=== PATIENT | male | born 1995 | race Caucasian/White ===

== ENCOUNTER 2016-07-05 16:39 | Emergency (ER) | payer OTHER ==
--- NOTE | 2016-07-05 17:53 | ED ORDER SUMMARY ---
..... Patient: RICHELLE BRUCE OrderSheet [facility] VisitID: [id number] [place] [address] 20y, M Registration Date/Time: 07/05/2016 ORDER SHEET Weight: 83.9 kg Allergies: [place] GENERAL ORDERS: Knee 4V Right Urgent (16:58 07/05/2016 EKoroleva P.A.-C) (Ack 17:18 LTapper) (17:27 LTapper) Tibia/Fibula Right Urgent (16:58 07/05/2016 EKoroleva P.A.-C) (Ack 17:18 LTapper) (17:27 LTapper) Crutches (17:29 07/05/2016 EKoroleva P.A.-C) (18:16 SRoberts R.N.) Knee Immobilizer (17:29 07/05/2016 EKoroleva P.A.-C) (18:16 SRoberts R.N.) MEDICATION ORDERS: IV FLUIDS: ORDER SHEET NOTES: [Electronically signed by Sarai Huggins R.N. (18:18 07/05/2016)] [Electronically signed by Paige Betancur P.A.-C (18:23 07/05/2016)] [Electronically locked/signed by Sarai Huggins R.N. (18:18 07/05/2016)]
--- NOTE | 2016-07-05 17:53 | ED CLINICAL REPORT ---
Clinical Report - Physicians/Mid Levels [facility] [address] [place] [address] 07/05/2016 16:41 Patient: RICHELLE BRUCE Time Seen: 16:55 Jul 05 2016. Arrived- By private vehicle. Historian- patient. HISTORY OF PRESENT ILLNESS Chief Complaint: Injury to right leg and right knee. The injury happened just prior to arrival. The patient sustained a direct blow. Occurred at home. Patient is experiencing moderate pain. Patient denies injury to the head or neck. (patient while riding a horse sustaining injury to his right knee from another horse into his knee (occurred while he was riding a horse). Reports pain to the leg and the incident occurred 2 hours prior to arrival. Has been ambulatory, however limping. No prior injury to the knee or leg. Take anti-inflammatory prior to arrival. Denies any ankle pain. Denies any thigh or hip pain. Denies any other injury to his head or neck abdomen or chest.). REVIEW OF SYSTEMS The patient complains of pain on weight bearing. All systems otherwise negative, except as recorded above. PAST HISTORY The patient has not had a prior injury to the same area. SOCIAL HISTORY Never smoker. No alcohol use or drug use. ADDITIONAL NOTES The nursing notes have been reviewed. PHYSICAL EXAM Vital Signs: 07/05/2016 16:54 BP: 132/64. HR: 87. RR: 20. O2 saturation: 100%. Temp: 98.1 F. Pain level now: 9/10. Appearance: Alert. No acute distress. Head: Head atraumatic. ENT: Ears normal. Nose normal. Neck: Normal inspection. Neck supple. CVS: Normal heart rate and rhythm. Heart sounds normal. No cardiac murmur or extra heart sounds. Respiratory: No respiratory distress. Breath sounds normal. Abdomen: No visible injury. Soft. No abdominal tenderness. Back: Normal inspection. No tenderness. No vertebral point tenderness. Skin: Skin warm. Normal skin color. Extremities: Right thigh. No tenderness or laceration. Right knee: mild tenderness. No ecchymosis or foreign body. Right leg: mild tenderness and swelling and small ecchymosis located in the anterior and medial aspect of upper leg. Neurovascular intact distally. (upper/ mid/ medial aspect). Right ankle. No tenderness or swelling. Gait: Limping gait. Neuro, Vascular and Tendons: Vascular status intact. Sensation intact. Motor intact. Neuro: Oriented X 3. No motor deficit. LABS, X-RAYS, AND EKG Rt Knee X-ray: (neg). Rt Tib/Fib X-ray: (neg). PROGRESS AND PROCEDURES Splint Application: Time: 18:20 Jul 05 2016. Knee immobilizer applied to right lower extremity. Splint applied with direct supervision by me. Reassessed extremity following splint application. Neurovascular intact. Follow-up recommended within 6 days. Fitted for crutches by the [facility]. Course of Care: NO sign sof obvious fx, pt able to ambulate. NO effusion. Stable. No other injuries. No signs of dislocation. Full rom, no anterior/ posterior drawer positive test. Pt with pain not out of proportion to injury. 07/05/2016 18:17 BP: 128/67. HR: 78. RR: 18. O2 saturation: 100%. Pain level now: 4/10. Patient is stable. Patient/family counseled. Disposition: Discharged. CLINICAL IMPRESSION Contusion to the right knee and right lower leg. INSTRUCTIONS Apply ice. Use crutches for three days as needed. Elevate affected areas above chest level. (no signs of Fracture [facility] as needed: [phone]). Prescription Medications: Ibuprofen 800 mg tablets: take 1 tablet orally every 8 hours for 5 days, as needed for pain. Dispense fifteen (15). No refill. Follow-up: Follow up with your doctor in three as needed. (Electronically signed by Paige Betancur P.A.-C 07/05/2016 18:23)
--- NOTE | 2016-07-05 17:53 | ED CLINICAL REPORT ---
Clinical Report - Physicians/Mid Levels [facility] [address] [place] [address] 07/05/2016 16:41 Patient: RICHELLE BRUCE Time Seen: 16:55 Jul 05 2016. Arrived- By private vehicle. Historian- patient. HISTORY OF PRESENT ILLNESS Chief Complaint: Injury to right leg and right knee. The injury happened just prior to arrival. The patient sustained a direct blow. Occurred at home. Patient is experiencing moderate pain. Patient denies injury to the head or neck. (patient while riding a horse sustaining injury to his right knee from another horse into his knee (occurred while he was riding a horse). Reports pain to the leg and the incident occurred 2 hours prior to arrival. Has been ambulatory, however limping. No prior injury to the knee or leg. Take anti-inflammatory prior to arrival. Denies any ankle pain. Denies any thigh or hip pain. Denies any other injury to his head or neck abdomen or chest.). REVIEW OF SYSTEMS The patient complains of pain on weight bearing. All systems otherwise negative, except as recorded above. PAST HISTORY The patient has not had a prior injury to the same area. SOCIAL HISTORY Never smoker. No alcohol use or drug use. ADDITIONAL NOTES The nursing notes have been reviewed. PHYSICAL EXAM Vital Signs: 07/05/2016 16:54 BP: 132/64. HR: 87. RR: 20. O2 saturation: 100%. Temp: 98.1 F. Pain level now: 9/10. Appearance: Alert. No acute distress. Head: Head atraumatic. ENT: Ears normal. Nose normal. Neck: Normal inspection. Neck supple. CVS: Normal heart rate and rhythm. Heart sounds normal. No cardiac murmur or extra heart sounds. Respiratory: No respiratory distress. Breath sounds normal. Abdomen: No visible injury. Soft. No abdominal tenderness. Back: Normal inspection. No tenderness. No vertebral point tenderness. Skin: Skin warm. Normal skin color. Extremities: Right thigh. No tenderness or laceration. Right knee: mild tenderness. No ecchymosis or foreign body. Right leg: mild tenderness and swelling and small ecchymosis located in the anterior and medial aspect of upper leg. Neurovascular intact distally. (upper/ mid/ medial aspect). Right ankle. No tenderness or swelling. Gait: Limping gait. Neuro, Vascular and Tendons: Vascular status intact. Sensation intact. Motor intact. Neuro: Oriented X 3. No motor deficit. LABS, X-RAYS, AND EKG Rt Knee X-ray: (neg). Rt Tib/Fib X-ray: (neg). PROGRESS AND PROCEDURES Splint Application: Time: 18:20 Jul 05 2016. Knee immobilizer applied to right lower extremity. Splint applied with direct supervision by me. Reassessed extremity following splint application. Neurovascular intact. Follow-up recommended within 6 days. Fitted for crutches by the [facility]. Course of Care: NO sign sof obvious fx, pt able to ambulate. NO effusion. Stable. No other injuries. No signs of dislocation. Full rom, no anterior/ posterior drawer positive test. Pt with pain not out of proportion to injury. 07/05/2016 18:17 BP: 128/67. HR: 78. RR: 18. O2 saturation: 100%. Pain level now: 4/10. Patient is stable. Patient/family counseled. Disposition: Discharged. CLINICAL IMPRESSION Contusion to the right knee and right lower leg. INSTRUCTIONS Apply ice. Use crutches for three days as needed. Elevate affected areas above chest level. (no signs of Fracture [facility] as needed: [phone]). Prescription Medications: Ibuprofen 800 mg tablets: take 1 tablet orally every 8 hours for 5 days, as needed for pain. Dispense fifteen (15). No refill. Follow-up: Follow up with your doctor in three as needed. (Electronically signed by Paige Betancur P.A.-C 07/05/2016 18:23)
--- NOTE | 2016-07-05 17:53 | ED ORDER SUMMARY ---
..... Patient: RICHELLE BRUCE OrderSheet [facility] VisitID: [id number] [place] [address] 20y, M Registration Date/Time: 07/05/2016 ORDER SHEET Weight: 83.9 kg Allergies: [place] GENERAL ORDERS: Knee 4V Right Urgent (16:58 07/05/2016 EKoroleva P.A.-C) (Ack 17:18 LTapper) (17:27 LTapper) Tibia/Fibula Right Urgent (16:58 07/05/2016 EKoroleva P.A.-C) (Ack 17:18 LTapper) (17:27 LTapper) Crutches (17:29 07/05/2016 EKoroleva P.A.-C) (18:16 SRoberts R.N.) Knee Immobilizer (17:29 07/05/2016 EKoroleva P.A.-C) (18:16 SRoberts R.N.) MEDICATION ORDERS: IV FLUIDS: ORDER SHEET NOTES: [Electronically signed by Sarai Huggins R.N. (18:18 07/05/2016)] [Electronically signed by Paige Betancur P.A.-C (18:23 07/05/2016)] [Electronically locked/signed by Sarai Huggins R.N. (18:18 07/05/2016)]
--- NOTE | 2016-07-05 17:53 | ED NURSING NOTES ---
Clinical Report - Nurses [facility] [address] [place] [address] 07/05/2016 16:41 [id number] Triage time 16:54. Acuity: LEVEL 3. Chief Complaint: INJURY TO RIGHT KNEE. Alert. No acute distress. JULIA COMA SCORE: Julia Coma Scale: 15- eyes open spontaneously (4); best verbal response- oriented x 4 (5); best motor response- obeys commands (6). --17:01 Sarai Huggins R.N. 16:54 07/05/16. BP: 132/64. HR: 87. RR: 20. O2 saturation: 100% on room air. Temp: 98.1 F. Pain level now: 01/04. --17:01 Sarai Huggins R.N. Weight: 83.9 kg. Height/Length: 72 inches Measured. BMI: 25.1. Growth Chart Percentile: Weight: 84.2%. Height/Length: 79.9%. --16:59 Sarai Huggins R.N. Medications Albuterol Sulfate HFA Inhalation, as needed. --16:59 Sarai Huggins R.N. The following entry was struck by Sarai Huggins R.N., 16:59 (07/05/16) Reason - other. <<STRICKEN ENTRY-- None. --16:56 Sarai Huggins R.N. --END STRIKE>>. Allergies [place]. --16:56 Sarai Huggins R.N. Medication/allergy information source: the patient. --17:01 Sarai Huggins R.N. History Arrived by private vehicle. Historian: patient. Accompanied by friend. No primary care physician. This occurred just prior to arrival. Mechanism of injury: a single blow ("While riding a horse, another person bumped into my rt knee, while they're riding a horse"). He has had trouble walking. The patient has been limping when trying to walk. Treatment COPYIST: Ice. PAST MEDICAL HX: Tetanus status: unknown. SURGERY HX: No history of previous surgery. SOCIAL HX: Never smoker. No alcohol use or drug use. FALL RISK ASSESSMENT: Fall risk assessment completed. No fall risk identified. NUTRITIONAL RISK ASSESSMENT: The nutritional risk assessment revealed no deficiencies. FUNCTIONAL ASSESSMENT: Functional assessment: no impairments noted. LEARNING NEEDS ASSESSMENT: The learning needs assessment revealed no barriers. SKIN INTEGRITY ASSESSMENT: Skin integrity risk assessment completed. No skin integrity risk identified. --17:01 Sarai Huggins R.N. PROBLEMS: Contusion. Cervical Strain. Myofascial Strain. Abrasion(s). Lung Disease. --16:57 Sarai Huggins R.N. ADDITIONAL SURGERIES: no known surgeries. Interventions ID band on patient. To room. --17:01 Sarai Huggins R.N. PHYSICAL ASSESSMENT Ambulatory to room. GENERAL / NEURO / PSYCH: Appears in pain and anxious. EXTREMITIES: Limited ROM present. Pain with weight bearing. Limping gait. Right knee: tenderness. Right leg: tenderness. SKIN: Skin intact. Skin is warm and dry. --17:01 Sarai Huggins R.N. NURSING PROGRESS NOTES Cold pack applied. Extremity elevated. Two patient identifiers checked. Call light placed in reach. Side rails up x 2. Bed placed in lowest position. Brakes of bed on. Patient ready for evaluation. --17:02 Sarai Huggins R.N. DISPOSITION / DISCHARGE Condition at departure: improved. No learning barriers present. Reviewed medication(s) side effects, precautions, dosing and course information. Prescription(s) given to the patient. Patient verbalized understanding. Written instructions provided in Danish. The patient was discharged home and accompanied by tunnel elastic operator lockstitch. He left the Emergency Department ambulatory and via private vehicle. Paint Dipper driving. Medication list reviewed and validated. --18:17 Sarai Huggins R.N. 18:17 07/05/16. BP: 128/67. HR: 78. RR: 18. O2 saturation: 100%. Temp: deferred. Pain level now: 08/04. 16:54 07/05/16. BP: 132/64. HR: 87. RR: 20. O2 saturation: 100% on room air. Temp: 98.1 F. Pain level now: 01/04. --18:17 Huggins, Sarai, R.N. Locked/Released at 07/05/2016 18:18 by Sarai Huggins R.N.
--- NOTE | 2016-07-05 17:53 | ED NURSING NOTES ---
Clinical Report - Nurses [facility] [address] [place] [address] 07/05/2016 16:41 [id number] Triage time 16:54. Acuity: LEVEL 3. Chief Complaint: INJURY TO RIGHT KNEE. Alert. No acute distress. JULIA COMA SCORE: Julia Coma Scale: 15- eyes open spontaneously (4); best verbal response- oriented x 4 (5); best motor response- obeys commands (6). --17:01 Sarai Huggins R.N. 16:54 07/05/16. BP: 132/64. HR: 87. RR: 20. O2 saturation: 100% on room air. Temp: 98.1 F. Pain level now: 01/04. --17:01 Sarai Huggins R.N. Weight: 83.9 kg. Height/Length: 72 inches Measured. BMI: 25.1. Growth Chart Percentile: Weight: 84.2%. Height/Length: 79.9%. --16:59 Sarai Huggins R.N. Medications Albuterol Sulfate HFA Inhalation, as needed. --16:59 Sarai Huggins R.N. The following entry was struck by Sarai Huggins R.N., 16:59 (07/05/16) Reason - other. <<STRICKEN ENTRY-- None. --16:56 Sarai Huggins R.N. --END STRIKE>>. Allergies [place]. --16:56 Sarai Huggins R.N. Medication/allergy information source: the patient. --17:01 Sarai Huggins R.N. History Arrived by private vehicle. Historian: patient. Accompanied by friend. No primary care physician. This occurred just prior to arrival. Mechanism of injury: a single blow ("While riding a horse, another person bumped into my rt knee, while they're riding a horse"). He has had trouble walking. The patient has been limping when trying to walk. Treatment FIRE CONTROL TECHNICIAN G: Ice. PAST MEDICAL HX: Tetanus status: unknown. SURGERY HX: No history of previous surgery. SOCIAL HX: Never smoker. No alcohol use or drug use. FALL RISK ASSESSMENT: Fall risk assessment completed. No fall risk identified. NUTRITIONAL RISK ASSESSMENT: The nutritional risk assessment revealed no deficiencies. FUNCTIONAL ASSESSMENT: Functional assessment: no impairments noted. LEARNING NEEDS ASSESSMENT: The learning needs assessment revealed no barriers. SKIN INTEGRITY ASSESSMENT: Skin integrity risk assessment completed. No skin integrity risk identified. --17:01 Sarai Huggins R.N. PROBLEMS: Contusion. Cervical Strain. Myofascial Strain. Abrasion(s). Lung Disease. --16:57 Sarai Huggins R.N. ADDITIONAL SURGERIES: no known surgeries. Interventions ID band on patient. To room. --17:01 Sarai Huggins R.N. PHYSICAL ASSESSMENT Ambulatory to room. GENERAL / NEURO / PSYCH: Appears in pain and anxious. EXTREMITIES: Limited ROM present. Pain with weight bearing. Limping gait. Right knee: tenderness. Right leg: tenderness. SKIN: Skin intact. Skin is warm and dry. --17:01 Sarai Huggins R.N. NURSING PROGRESS NOTES Cold pack applied. Extremity elevated. Two patient identifiers checked. Call light placed in reach. Side rails up x 2. Bed placed in lowest position. Brakes of bed on. Patient ready for evaluation. --17:02 Sarai Huggins R.N. DISPOSITION / DISCHARGE Condition at departure: improved. No learning barriers present. Reviewed medication(s) side effects, precautions, dosing and course information. Prescription(s) given to the patient. Patient verbalized understanding. Written instructions provided in [place]. The patient was discharged home and accompanied by machine heel seat fitter. He left the Emergency Department ambulatory and via private vehicle. Team Physician driving. Medication list reviewed and validated. --18:17 Sarai Huggins R.N. 18:17 07/05/16. BP: 128/67. HR: 78. RR: 18. O2 saturation: 100%. Temp: deferred. Pain level now: 08/04. 16:54 07/05/16. BP: 132/64. HR: 87. RR: 20. O2 saturation: 100% on room air. Temp: 98.1 F. Pain level now: 01/04. --18:17 Huggins, Sarai, R.N. Locked/Released at 07/05/2016 18:18 by Sarai Huggins R.N.
--- NOTE | 2016-07-05 18:24 | ED MED RECONCILIATION SUMMARY ---
Patient: RICHELLE BRUCE Medication Reconciliation Report [facility] VisitID: [id number] [address] [place] [address] 20y, M Registration Date/Time: 07/05/2016 Weight: 83.9 kg Height/Length: 72 in. BMI: 25.1 ALLERGIES: [place] The patient's Home Medications are listed below: THE FOLLOWING MEDICATIONS NEED TO BE RECONCILED: Albuterol Sulfate HFA Inhalation The source(s) of the original Home Medication information: patient The following Medications were given to the patient in the Emergency Department: None. The following Medications were prescribed to the patient: Ibuprofen 800 mg tablets: take 1 tablet orally every 8 hours for 5 days, as needed for pain. Dispense fifteen (15). No refill. -- Paige Betancur P.A.-C
--- NOTE | 2016-07-05 18:24 | ED MAR SUMMARY ---
..... Medication Administration Record [facility] [address] [place], [place] [id number] Patient: RICHELLE BRUCE Visit ID: [id number] 20y, M Weight: 83.9 kg Height/Length: 72 in BMI: 25.1 ALLERGIES: [place]
--- NOTE | 2016-07-05 18:24 | ED DISCHARGE INSTRUCTIONS ---
Patient: RICHELLE BRUCE General Instructions [facility] VisitID: [id number] [place] [address] 20y, M Registration Date/Time: 07/05/2016 Contusion to the right knee and right lower leg. INSTRUCTIONS Apply ice. Use crutches for three days as needed. Elevate affected areas above chest level. (no signs of Fracture [facility] as needed: [phone]). Prescription Medications: Ibuprofen 800 mg tablets: take 1 tablet orally every 8 hours for 5 days, as needed for pain. Dispense fifteen (15). No refill. Follow-up: Follow up with your doctor in three as needed. ADDITIONAL INFORMATION Contusion:Lower Extremity You have a CONTUSION of your LOWER extremity (leg, knee, ankle, foot, or toes). This causes local pain, swelling and sometimes bruising. There are no broken bones. This injury may take from a few days to a few weeks to heal. Home Care: 1) Keep your leg elevated to reduce pain and swelling. When sleeping, place a pillow under the injured leg. When sitting, support the injured leg so it is level with your waist. This is very important during the first 48 hours. 2) If CRUTCHES have been advised, do not bear full weight on the injured leg until you can do so without pain. You may return to sports when you are able to hop and run on the injured leg without pain. 3) Apply an ice pack (ice cubes in a plastic bag, wrapped in a towel) over the injured area for 20 minutes every 1-2 hours the first day for pain relief. Continue this 3-4 times a day until the pain and swelling goes away. 4) You may use acetaminophen (Tylenol) or ibuprofen (Motrin, Advil) to control pain, unless another pain medicine was prescribed. [ NOTE : If you have chronic liver or kidney disease or ever had a stomach ulcer or GI bleeding, talk with your doctor before using these medicines.] Follow Up with your doctor or this facility if you are not starting to improve within the next THREE days. [NOTE: If X-rays were taken, they will be reviewed by a radiologist. You will be notified of any new findings that may affect your care.] Get Prompt Medical Attention if any of the following occur: -- Pain or swelling increases -- Toes become cold, blue, numb or tingly -- Redness, warmth or drainage from the skin Crutch Walking Crutch Adjustment Make sure the crutches you use are adjusted to fit you. When you stand, there should be room to fit 2-3 fingers between the top of the crutch and your armpit. Your elbow should be slightly bent when holding the hand hand cell tuber. Crutch Walking: Place the crutches forward 12" in front of and 6" to the side of your feet. Lean your weight forward as you push down on the handgrips. Your weight should be on your hands and yourstrong leg, not your armpits . Let your body swing through, landing on the strong leg. Advance the crutches forward again. The crutch and the injured leg should move together. Going Up Steps: ("Up with the good") With both crutches on the same step as your feet, push down on the handgrips. Balancing with very light pressure on the weak leg, let your hands support your weight as you raise your strong leg onto the next higher step. Transfer all your weight to your strong leg (still bent) as you move the crutches up to the next step alongside the strong leg. With your weight evenly balanced on the two crutches and your strong leg, straighten your strong knee as you raise the weak leg up to the next step. Going Down Steps: ("Down with the bad") With both crutches on the same step as your feet, push down on the handgrips. With your weight evenly balanced on the two crutches and your strong leg, bend your strong knee as you lower the weak leg down to the next step. Let your strong leg support you (still bent) as you move the crutches down alongside the weak leg. Transfer your weight to your hands, balancing with very light pressure on the weak leg as you lower your strong leg alongside your weak leg. You have been given the following additional information: Contusion, Lower Extremity Crutch Walking (Electronically signed by Paige Betancur P.A.-C 07/05/2016 18:23)
--- NOTE | 2016-07-05 18:24 | ED MAR SUMMARY ---
..... Medication Administration Record [facility] [address], [place] [id number] Patient: RICHELLE BRUCE Visit ID: [id number] 20y, M Weight: 83.9 kg Height/Length: 72 in BMI: 25.1 ALLERGIES: [place]
--- NOTE | 2016-07-05 18:24 | ED DISCHARGE INSTRUCTIONS ---
Patient: RICHELLE BRUCE General Instructions [facility] VisitID: [id number] [place] [address] 20y, M Registration Date/Time: 07/05/2016 Contusion to the right knee and right lower leg. INSTRUCTIONS Apply ice. Use crutches for three days as needed. Elevate affected areas above chest level. (no signs of Fracture [facility] as needed: [phone]). Prescription Medications: Ibuprofen 800 mg tablets: take 1 tablet orally every 8 hours for 5 days, as needed for pain. Dispense fifteen (15). No refill. Follow-up: Follow up with your doctor in three as needed. ADDITIONAL INFORMATION Contusion:Lower Extremity You have a CONTUSION of your LOWER extremity (leg, knee, ankle, foot, or toes). This causes local pain, swelling and sometimes bruising. There are no broken bones. This injury may take from a few days to a few weeks to heal. Home Care: 1) Keep your leg elevated to reduce pain and swelling. When sleeping, place a pillow under the injured leg. When sitting, support the injured leg so it is level with your waist. This is very important during the first 48 hours. 2) If CRUTCHES have been advised, do not bear full weight on the injured leg until you can do so without pain. You may return to sports when you are able to hop and run on the injured leg without pain. 3) Apply an ice pack (ice cubes in a plastic bag, wrapped in a towel) over the injured area for 20 minutes every 1-2 hours the first day for pain relief. Continue this 3-4 times a day until the pain and swelling goes away. 4) You may use acetaminophen (Tylenol) or ibuprofen (Motrin, Advil) to control pain, unless another pain medicine was prescribed. [ NOTE : If you have chronic liver or kidney disease or ever had a stomach ulcer or GI bleeding, talk with your doctor before using these medicines.] Follow Up with your doctor or this facility if you are not starting to improve within the next THREE days. [NOTE: If X-rays were taken, they will be reviewed by a radiologist. You will be notified of any new findings that may affect your care.] Get Prompt Medical Attention if any of the following occur: -- Pain or swelling increases -- Toes become cold, blue, numb or tingly -- Redness, warmth or drainage from the skin Crutch Walking Crutch Adjustment Make sure the crutches you use are adjusted to fit you. When you stand, there should be room to fit 2-3 fingers between the top of the crutch and your armpit. Your elbow should be slightly bent when holding the hand sap pi developer. Crutch Walking: Place the crutches forward 12" in front of and 6" to the side of your feet. Lean your weight forward as you push down on the handgrips. Your weight should be on your hands and yourstrong leg, not your armpits . Let your body swing through, landing on the strong leg. Advance the crutches forward again. The crutch and the injured leg should move together. Going Up Steps: ("Up with the good") With both crutches on the same step as your feet, push down on the handgrips. Balancing with very light pressure on the weak leg, let your hands support your weight as you raise your strong leg onto the next higher step. Transfer all your weight to your strong leg (still bent) as you move the crutches up to the next step alongside the strong leg. With your weight evenly balanced on the two crutches and your strong leg, straighten your strong knee as you raise the weak leg up to the next step. Going Down Steps: ("Down with the bad") With both crutches on the same step as your feet, push down on the handgrips. With your weight evenly balanced on the two crutches and your strong leg, bend your strong knee as you lower the weak leg down to the next step. Let your strong leg support you (still bent) as you move the crutches down alongside the weak leg. Transfer your weight to your hands, balancing with very light pressure on the weak leg as you lower your strong leg alongside your weak leg. You have been given the following additional information: Contusion, Lower Extremity Crutch Walking (Electronically signed by Paige Betancur P.A.-C 07/05/2016 18:23)
--- NOTE | 2016-07-05 18:24 | ED MED RECONCILIATION SUMMARY ---
Patient: RICHELLE BRUCE Medication Reconciliation Report [facility] VisitID: [id number] [address] [place] [address] 20y, M Registration Date/Time: 07/05/2016 Weight: 83.9 kg Height/Length: 72 in. BMI: 25.1 ALLERGIES: Elbert The patient's Home Medications are listed below: THE FOLLOWING MEDICATIONS NEED TO BE RECONCILED: Albuterol Sulfate HFA Inhalation The source(s) of the original Home Medication information: patient The following Medications were given to the patient in the Emergency Department: None. The following Medications were prescribed to the patient: Ibuprofen 800 mg tablets: take 1 tablet orally every 8 hours for 5 days, as needed for pain. Dispense fifteen (15). No refill. -- Paige Betancur P.A.-C
--- NOTE | 2016-07-05 20:02 | DIAGNOSTIC IMAGING REPORT ---
PROCEDURE: XR KNEE 4 VIEWS - RIGHT INDICATION: TRAUMA/INJURY TECHNIQUE: Four views. COMPARISON: None. FINDINGS: Osseous structures and joint spaces are normal. IMPRESSION: 1. Normal left knee.
--- NOTE | 2016-07-05 20:03 | DIAGNOSTIC IMAGING REPORT ---
PROCEDURE: XR TIBIA AND FIBULA - RIGHT INDICATION: TRAUMA/INJURY TECHNIQUE: AP and lateral views. COMPARISON: None. FINDINGS: Bones, joint spaces and soft tissues are normal. IMPRESSION: 1. Normal right tibia and fibula.
== END 2016-07-05 18:15 | disposition home or self-care (01) ==
LOC: ED SRH 16:39
DX: S80.01XA Contusion of right knee, initial encounter (principal); S80.11XA Contusion of right lower leg, initial encounter; Y93.52 Activity, horseback riding; Y92.9 Unspecified place or not applicable; Y99.9 Unspecified external cause status; V80.919A Animal-rider injured in unspecified transport accident, initial encounter